=== PATIENT | male | born 1965 | race African-American/Black ===

== ENCOUNTER 2018-01-09 16:44 | Emergency (ER) | payer MEDICAID, OTHER ==
[~2018-01-09] VITALS: Ht 177.8 cm; Wt 80.0 kg
[~2018-01-09 16:44] MED LIST: AMLO5TAB4; RISP1
[2018-01-09] MEDS ORDERED: FAMOTIDINE 20MG/2ML VIAL IV STA (17:56)
[2018-01-09] MEDS ORDERED: ONDANSETRON HCL 4MG/2ML VIAL IV STA (17:56)
[2018-01-09] MEDS ORDERED: MORPHINE SULFATE 4 MG/ML CPJ (NOT FOR IM USE) IV STA (17:56)
[2018-01-09] MEDS ORDERED: SODIUM CHLORIDE 0.9% 1,000 ML IV ONE (17:56)
[2018-01-09 18:31] LABS: BASOPHILS % 0.7 % (0.0-2.0); EOSINOPHILS % 0.8 % (0.0-5.0); HEMATOCRIT. 54.6 % (42.0-52.0); HEMOGLOBIN. 18.7 g/dL (14.0-18.0); LYMPHOCYTES % 18.5 % (20.0-50.0); MEAN CORPUSCULAR HEMOGLOBIN 32.4 pg (28.0-32.0); MEAN CORPUSCULAR VOLUME 94.5 fL (80.0-94.0); MEAN PLATELET VOLUME 9.5 fl (7.4-10.4); MONOCYTES % 9.5 % (2.0-8.0); NEUTROPHILS % 70.5 % (40.0-76.0); PLATELET 242 x1000/uL (130-400); RED BLOOD CELL COUNT 5.78 mill/uL (4.7-6.1)
[2018-01-09 18:36] LABS: CHLORIDE 105 mEq/L (98-107); INR 1.1; PROTHROMBIN TIME 11.3 sec (9.4-11.6)
[2018-01-09 21:17] VITALS: BP 142/99
== END 2018-01-09 21:17 | disposition home or self-care (01) ==
LOC: ER 16:44
DX: E86.0 Dehydration (principal); R11.2 Nausea with vomiting, unspecified; I10 Essential (primary) hypertension; F12.10 Cannabis abuse, uncomplicated; R10.30 Lower abdominal pain, unspecified
CPT/HCPCS: 36415; 71045; 74176; 80053; 83690; 83880; 84484; 85025; 85610; 96361; 96374; 96375; 99285; J2270; J2405; J3490; J7030

== ENCOUNTER 2020-11-29 03:26 | Emergency (ER) | payer MEDICAID ==
[~2020-11-29] VITALS: Ht 182.9 cm; Wt 100.0 kg
[2020-11-29 04:31] LABS: BASOPHILS % 0.7 % (0.0-2.0); HEMATOCRIT. 53.1 % (42.0-52.0); HEMOGLOBIN. 17.6 g/dL (14.0-18.0); LYMPHOCYTES % 26.5 % (20.0-50.0); MEAN CORPUSCULAR HEMOGLOBIN 31.9 pg (28.0-32.0); MEAN CORPUSCULAR VOLUME 96.2 fL (80.0-94.0); MEAN PLATELET VOLUME 9.8 fl (7.4-10.4); MONOCYTES % 7.6 % (2.0-8.0); NEUTROPHILS % 63.2 % (40.0-76.0); PLATELET 212 x1000/uL (130-400); RED BLOOD CELL COUNT 5.52 mill/uL (4.7-6.1); RED CELL DISTRIBUTION WIDTH 14.8 % (11.6-14.6)
[2020-11-29 04:37] LABS: CHLORIDE 105 mEq/L (98-107)
[2020-11-29 04:42] LABS: ETHANOL BLOOD < 10 mg/dL
[2020-11-29] MEDS: OLANZAPINE 5MG TABLET PO SCH ×2 (13:33→18:05)
[2020-11-29] MEDS ORDERED: POTASSIUM CHLORIDE 20MEQ TABLET SR PO NR (14:30)
[2020-11-29 15:42] LABS: CHLORIDE 105 mEq/L (98-107)
[2020-11-29 15:50] LABS: CLARITY URINE CLEAR (CLEAR); COLOR URINE DARK YELLOW (YELLOW); KETONES URINE NEGATIVE (NEGATIVE); LEUKOCYTE ESTERASE URINE 1+ (NEGATIVE); NITRITE URINE NEGATIVE (NEGATIVE); OCCULT BLOOD URINE TRACE (NEGATIVE); PH URINE 6.5 (4.5-8.0); PROTEIN URINE NEGATIVE (NEGATIVE); SPECIFIC GRAVITY URINE 1.019 (1.005-1.030)
[2020-11-29] MEDS ORDERED: CLONIDINE 0.2MG TABLET PO ONE (16:15)
[2020-11-29 16:27] LABS: *BARBITURATES SCREEN URINE NEGATIVE (NEGATIVE); METHADONE URINE SCREEN NEGATIVE (NEGATIVE); OPIATES URINE SCREEN NEGATIVE (NEGATIVE); PHENCYCLIDINE URINE SCREEN NEGATIVE (NEGATIVE)
[2020-11-29 16:28] LABS: *AMPHETAMINES SCREEN URINE NEGATIVE (NEGATIVE); *BENZODIAZEPINES SCREEN URINE NEGATIVE (NEGATIVE); *COCAINE SCREEN URINE NEGATIVE (NEGATIVE); CANNABINOID URINE SCREEN PRESUMTIVE POSITIVE (NEGATIVE)
[2020-11-29] MEDS ORDERED: CLONIDINE 0.2MG TABLET PO NR (16:30)
[2020-11-29] MEDS: AMLODIPINE 5MG TABLET PO SCH (22:10)
[2020-11-30] MEDS: AMLODIPINE 5MG TABLET PO SCH (09:19)
[2020-11-30] MEDS: OLANZAPINE 5MG TABLET PO SCH ×2 (09:20→18:15)
[2020-11-30] MEDS ORDERED: AMLODIPINE 5MG TABLET PO ONE (19:15)
[2020-12-01] MEDS ORDERED: AMLODIPINE 10MG TABLET PO ONE (06:30)
[2020-12-01] MEDS: AMLODIPINE 5MG TABLET PO SCH (08:28)
[2020-12-01] MEDS: OLANZAPINE 5MG TABLET PO SCH ×2 (09:13→18:06)
[2020-12-01] MEDS ORDERED: CLONIDINE 0.2MG TABLET PO ONE (16:00)
[2020-12-02] MEDS: AMLODIPINE 5MG TABLET PO SCH (08:53)
[2020-12-02] MEDS: OLANZAPINE 5MG TABLET PO SCH (08:53)
[2020-12-02 13:01] VITALS: BP 150/84
== END 2020-12-02 13:20 ==
LOC: ER 03:26
DX: T45.0X2A Poisoning by antiallergic and antiemetic drugs, intentional self-harm, initial encounter (principal); F33.3 Major depressive disorder, recurrent, severe with psychotic symptoms; Z20.822 Contact with and (suspected) exposure to COVID-19; R41.82 Altered mental status, unspecified; E87.6 Hypokalemia; Z91.14 Patient's other noncompliance with medication regimen; F12.90 Cannabis use, unspecified, uncomplicated; Y92.89 Other specified places as the place of occurrence of the external cause
CPT/HCPCS: 36415; 80053; 80305; 80307; 80320; 80329; 81003; 85025; 93005; 99285; G0480

== ENCOUNTER 2020-12-05 13:33 | Emergency (ER) | payer MEDICAID ==
[~2020-12-05] VITALS: Ht 175.3 cm; Wt 113.0 kg
[2020-12-05] MEDS ORDERED: CEFTRIAXONE 1 G PREMIX 50 ML IV ONE (14:15)
[2020-12-05] MEDS ORDERED: SODIUM CHLORIDE 0.9% 1000ML BAG (SEPSIS BOLUS) IV ONE (14:15)
[2020-12-05 14:46] LABS: HEMATOCRIT. 51.9 % (42.0-52.0); HEMOGLOBIN. 17.4 g/dL (14.0-18.0); MEAN CORPUSCULAR HEMOGLOBIN 31.8 pg (28.0-32.0); MEAN CORPUSCULAR VOLUME 94.8 fL (80.0-94.0); MEAN PLATELET VOLUME 9.8 fl (7.4-10.4); PLATELET 209 x1000/uL (130-400); RED BLOOD CELL COUNT 5.47 mill/uL (4.7-6.1); RED CELL DISTRIBUTION WIDTH 14.7 % (11.6-14.6)
[2020-12-05 14:51] LABS: CHLORIDE 103 mEq/L (98-107)
[2020-12-05 14:53] LABS: INR 1.1; PROTHROMBIN TIME 11.4 sec (9.6-11.0)
[2020-12-05 15:40] LABS: CLARITY URINE CLOUDY (CLEAR); COLOR URINE DARK YELLOW (YELLOW); KETONES URINE TRACE (NEGATIVE); LEUKOCYTE ESTERASE URINE 1+ (NEGATIVE); NITRITE URINE NEGATIVE (NEGATIVE); OCCULT BLOOD URINE NEGATIVE (NEGATIVE); PH URINE 6.5 (4.5-8.0); PROTEIN URINE 1+ (NEGATIVE); SPECIFIC GRAVITY URINE 1.027 (1.005-1.030)
[2020-12-05 17:40] LABS: PLATELET ESTIMATE NORMAL
[2020-12-05] MEDS ORDERED: SULFAMETHOXAZOLE/TRIMETHOPRIM 800/160MG TABLET PO ONE (18:30)
[2020-12-05] MEDS ORDERED: CEPH250C2 MT (18:31)
[2020-12-05] MEDS ORDERED: SULF1TAB48 MT (18:31)
[2020-12-05 18:45] VITALS: BP 135/87
== END 2020-12-05 19:06 | disposition admitted as inpatient to this hospital (09) ==
LOC: ER 14:16 → CANBEDREQ 19:35
DX: L03.116 Cellulitis of left lower limb (principal); L40.9 Psoriasis, unspecified; F17.200 Nicotine dependence, unspecified, uncomplicated; F12.10 Cannabis abuse, uncomplicated; I10 Essential (primary) hypertension; Z79.899 Other long term (current) drug therapy
CPT/HCPCS: 36415; 71045; 80053; 81003; 83605; 84145; 85025; 85610; 87040; 87086; 93005; 96374; 99285; J0696; J7030

== ENCOUNTER 2022-10-31 09:35 | Emergency (ER) | payer MEDICAID ==
[~2022-10-31] VITALS: Ht 185.4 cm; Wt 104.0 kg
[~2022-10-31 09:35] MED LIST changes: +CEPH250C2 MT; +SULF1TAB48 MT
[2022-10-31 09:49] VITALS: BP 130/80
== END 2022-10-31 15:33 | disposition left against medical advice (07) ==
LOC: ER 09:35
DX: Z53.21 Procedure and treatment not carried out due to patient leaving prior to being seen by health care provider (principal)